=== PATIENT | female | born 1990 | race African-American/Black ===

== ENCOUNTER 2019-12-09 15:55 | Emergency (ER) | payer OTHER ==
--- NOTE | 2019-12-09 16:22 | ED ---
HPI Chest Pain - HPI Summary HPI Summary: 29 year old F presenting to [facility] with a chief complaint of constant left sided chest pain that she describes as a pressure and left arm pain since 2 weeks ago. The patient rates the pain 5/10 in severity. Symptoms aggravated by eating fatty foods and being upset. Symptoms alleviated by nothing. Patient reports indigestion when her symptoms first began. Patient denies any shortness of breath. She also denies any family history of MO, but her grandfather of heart failure. She denies any recent travel, taking hormonal medications, or leg pain or swelling. Medication list reviewed. Allergy list reviewed. - History of Current Complaint Chief Complaint: EDChestPainROMI Time Seen by Provider: 12/09/19 16:11 Hx Obtained From: Patient Onset/Duration: Started Weeks Ago Timing: Constant Current Severity: Moderate Pain Intensity: 5 Pain Scale Used: 0-10 Numeric Chest Pain Location: Left Anterior Chest Pain Radiates: Yes Chest Pain Radiates To:: Arm - Left Character: Pressure/Squeezing Aggravating Factor(s): Other: - Food, stress Alleviating Factor(s): Nothing Associated Signs and Symptoms: Positive: Other: - Indigestion - Allergy/Home Medications Allergies/Adverse Reactions: Allergies Allergy/AdvReac Type Severity Reaction Status Date / Time cefaclor [From [facility]] Allergy Hives Verified 12/09/19 16:00 crab Allergy Vomiting Verified 12/09/19 16:00 Home Medications: Home Medications NK [No Home Medications Reported] 12/09/19 [History Confirmed 12/09/19] PMH/Surg Hx/FS Hx/Imm Hx Endocrine/Hematology History: Denies: Hx Diabetes Cardiovascular History: Denies: Hx Myocardial Infarction - Surgical History Surgical History: Yes Surgery Procedure, Year, and Place: [place] Infectious Disease History: No Infectious Disease History: Denies: Traveled Outside the [place] in Last 30 Days - Family History Known Family History: Positive: Cardiac Disease - Social History Alcohol Use: Occasionally Hx Substance Use: Yes Substance Use Type: Reports: Marijuana Hx Tobacco Use: No Smoking Status (MU): Never Smoked Tobacco Review of Systems Positive: Chest Pain Negative: Shortness Of Breath Positive: Other - Indigestion Musculoskeletal: Negative - Leg pain or swelling Positive: Other - Left arm pain All Other Systems Reviewed And Are Negative: Yes Physical Exam - Summary Physical Exam Summary: Constitutional: Well-developed, Well-nourished, Alert. (-) Distressed Skin: Warm, Dry HENT: Normocephalic; Atraumatic Eyes: Conjunctiva normal Neck: Musculoskeletal ROM normal neck. (-) JVD, (-) Stridor, (-) Tracheal deviation Cardio: Rhythm regular, rate normal, Heart sounds normal; Intact distal pulses; Radial pulses are 2+ and symmetric. (-) Murmur Pulmonary/Chest wall: Effort normal. (-) Respiratory distress, (-) Wheezes, (-) Rales Abd: Soft, (-) tenderness, (-) Distension, (-) Guarding, (-) Rebound Musculoskeletal: (-) Edema. Good pulses bilaterally in radius, No calf tenderness, No venous cords, No pain with dorsiflexion of foot. Lymph: (-) Cervical adenopathy Neuro: Alert, Oriented x3 Psych: Mood and affect Normal Triage Information Reviewed: Yes Vital Signs On Initial Exam: Initial Vitals Temp Pulse Resp BP Pulse Ox 99.4 F 85 15 126/90 100 12/09/19 15:58 12/09/19 15:58 12/09/19 15:58 12/09/19 15:58 12/09/19 15:58 Vital Signs Reviewed: Yes Procedures - Sedation Patient Received Moderate/Deep Sedation with Procedure: No Diagnostics - Vital Signs Vital Signs Temp Pulse Resp BP Pulse Ox 12/09/19 15:58 99.4 F 85 15 126/90 100 - Laboratory Result Diagrams: 12/09/19 16:30 12/09/19 16:30 Lab Statement: Any lab studies that have been ordered have been reviewed, and results considered in the medical decision making process. - Radiology Chest x-ray Radiology Interpretation Completed By: Radiologist Summary of Radiographic Findings: NO EVIDENCE FOR ACTIVE CARDIOPULMONARY DISEASE. ED physician has reviewed this report. - EKG 16:08 Cardiac Rate: NL - 73 BPM EKG Rhythm: Sinus Rhythm Summary of EKG Findings: No evidence of ischemia. ED physician has reviewed and interpreted this EKG. Re-Evaluation - Re-Evaluation First Eval Re-Evaluation Time: 17:56 Change: Improved Comment: The patient is feeling much better. Chest Pain Course/Dx - Course Course Of Treatment: Patient is here 2 weeks of chest pain that is worse after eating. Patient is overall well-appearing. Patient EKG which showed no ischemic changes. Patient had a negative chest x-ray. Patient is overall low risk for PE and had a negative d-dimer. Patient had negative troponin. Patient 's symptoms were much better after Maalox and lidocaine. Patient was discharged with instructions to start omeprazole and Maalox - Diagnoses Provider Diagnoses: Esophagitis, Acid reflux Discharge ED - Sign-Out/Discharge Documenting (check all that apply): Patient Departure - Discharge Plan Condition: Stable Disposition: HOME Patient Education Materials: Diet for Stomach Ulcers and Gastritis (ED), Gastroesophageal Reflux Disease (ED) Referrals: [facility] [place] [Outside] Additional Instructions: Call [facility] [place] to set up a primary care physician. Do the diet that we talked about. Buy Omeprazole and Melox over the counter and do a 14 day course of Omeprazole. Return to the emergency department for any severe chest pain, if you are vomiting blood, trouble breathing, or any other concerning symptoms. - Billing Disposition and Condition Condition: STABLE Disposition: Home - Attestation Statements Document Initiated by Giulianoe: Yes Documenting Scribe: Olamide Magaña Provider For Whom Shandra is Documenting (Include Credential): Demetris Marks MD Scribe Attestation: Olamide Ellis scribed for Demetris Marks MD on 12/09/19 at 1843. Scribe Documentation Reviewed: Yes Provider Attestation: The documentation as recorded by the Olamide spivey accurately reflects the service I personally performed and the decisions made by , Deemtris Marks MD Status of Scribe Document: Viewed
[2019-12-09] MEDS ORDERED: Lidocaine 2% VISCOUS* 15 ML UDC PO ONE (16:26)
[2019-12-09] MEDS ORDERED: Al Hydrox/Mg Hydrox/Simet LIQ* 30 ML UDC PO ONE (16:26)
[2019-12-09 16:38] LABS: ABS Eosinophils 0.2 10^3/ul (0-0.6); ABS Lymphocytes 1.8 10^3/ul (1.0-4.8); ABS Monocytes 0.3 10^3/ul (0-0.8); ABS Neutrophils 2.1 10^3/ul (1.5-7.7); Eosinophil % 3.4 %; Hematocrit 38 % (35-47); Hemoglobin 12.5 g/dL (12.0-16.0); Mean Corpuscular HGB Conc 33 g/dL (31-36); Mean Corpuscular Hemoglobin 26 pg (27-31); Mean Corpuscular Volume 80 fL (80-97); Mean Platelet Volume 7.9 fL (7.4-10.4); Nucleated Red Blood Cells % 0.1; Platelet Count 351 10^3/uL (150-450); Red Blood Count 4.77 10^6 /uL (3.70-4.87); Red Cell Distribution Width 16 % (10-15); White Blood Count 4.4 10^3/uL (3.5-10.8)
[2019-12-09 17:18] LABS: ALT 15 U/L (7-52); AST 20 U/L (13-39); Albumin 4.5 g/dL (3.2-5.2); Albumin/Globulin Ratio 1.3 (1-3); Alkaline Phosphatase 47 U/L (34-104); Anion Gap 9 mmol/L (2-11); BUN/Creatinine Ratio 13.8 (8-20); Blood Urea Nitrogen 12 mg/dL (6-24); CO2 Carbon Dioxide 26 mmol/L (22-32); Calcium 9.9 mg/dL (8.6-10.3); Chloride 102 mmol/L (101-111); EGFR African American 93.8 (>60); EGFR Non-African American 77.5 (>60); Globulin 3.4 g/dL (2-4); Glucose 100 mg/dL (70-100); Potassium 3.7 mmol/L (3.5-5.0); Sodium 137 mmol/L (135-145); Total Protein 7.9 g/dL (6.4-8.9)
[2019-12-09 17:25] LABS: HCG Pregnancy < 0.60 mIU/mL
[2019-12-09 19:15] VITALS: BP 111/81
== END 2019-12-09 19:15 | disposition home or self-care (01) ==
LOC: ED 15:55
DX: K21.0 Gastro-esophageal reflux disease with esophagitis (principal); R07.9 Chest pain, unspecified; M79.602 Pain in left arm; Z88.8 Allergy status to other drugs, medicaments and biological substances; Z82.49 Family history of ischemic heart disease and other diseases of the circulatory system
CPT/HCPCS: 36415; 71046; 80053; 84484; 84702; 85025; 85379; 93005; 99283; A9270-GY